=== PATIENT | female | born 1985 | race Caucasian/White ===

== ENCOUNTER → 2016-04-09 | Outpatient (REF) | payer OTHER ==
[~2016-04-09] MED LIST: IBUP800T OR; KLON0.5T PO; LABE100T2 OR; METO25TA74 PO; METO25TAB PO; PERC5TAB8 OR; PHEN15CA58 PO; PRENTAB8 PO; SERT-141 PO
[2016-04-09 09:45] LABS: THYROXINE (T4) 7.2 UG/DL (4.5-12.0)
== END ==
LOC: M SFHCLERA 08:59
PROVIDERS: ATTEND Family Medicine
DX: R94.6 Abnormal results of thyroid function studies (principal)

== ENCOUNTER → 2016-05-20 | Outpatient (REF) | payer OTHER | LOC: M SFHCLERA 08:38 | PROVIDERS: ATTEND Family Medicine | DX: E03.8 Other specified hypothyroidism (principal) ==

== ENCOUNTER → 2016-10-13 | Outpatient (REF) | payer OTHER ==
[~2016-10-13] MED LIST changes: +LEVO50TA5; +LOPR1TAB6 PO; +METO1TAB32 PO; -METO25TA74 PO; +METO50TA7; +PHEN15CA PO; -PHEN15CA58 PO; -SERT-141 PO; +SERT50TA PO; +ZOLO100T PO
== END ==
LOC: M SFHCLERA 11:46
PROVIDERS: ATTEND Family Medicine
DX: E89.0 Postprocedural hypothyroidism (principal)

== ENCOUNTER 2016-10-17 17:38 | Emergency (ER) | payer OTHER ==
[~2016-10-17] VITALS: Ht 154.9 cm; Wt 100.0 kg
[~2016-10-17 17:38] MED LIST changes: -LEVO50TA5; -LOPR1TAB6 PO; -METO50TA7; -ZOLO100T PO
[2016-10-17] MEDS ORDERED: LOPR1TAB6 PO (17:52)
[2016-10-17] MEDS ORDERED: ZOLO100T PO (17:52)
[2016-10-17] MEDS ORDERED: LEVO50TA5 (17:52)
[2016-10-17] MEDS ORDERED: METO50TA7 (17:52)
[2016-10-17 18:18] LABS: MEAN CORPUSCULAR HEMOGLOBIN 31.3 pg (27.0-33.0); MEAN CORPUSCULAR HGB CONC 35.2 g/dl (32.0-36.5); MEAN CORPUSCULAR VOLUME 88.9 fl (80.0-96.0); RED CELL DISTRIBUTION WIDTH 13.6 % (11.5-14.5); WHITE BLOOD COUNT 13.5 K/mm3 (4.0-10.0)
[2016-10-17 18:42] LABS: CONTROL LINE HCG INT CTR LINE PRESENT
[2016-10-17 18:50] LABS: METHADONE URINE NEGATIVE (NEGATIVE)
[2016-10-17 19:00] LABS: ALBUMIN 3.9 GM/DL (3.2-5.2); ALBUMIN/GLOBULIN RATIO 1.05 (1.00-1.93); ALKALINE PHOSPHATASE 99 U/L (45-117); ALT/SGPT 53 U/L (12-78); ANION GAP 10 MEQ/L (8-16); AST/SGOT 41 U/L (15-37); BILIRUBIN,DIRECT < 0.1 MG/DL (0.0-0.2); BILIRUBIN,TOTAL 0.3 MG/DL (0.2-1.0); BLOOD UREA NITROGEN 13 MG/DL (7-18); CALCIUM LEVEL 8.9 MG/DL (8.5-10.1); CARBON DIOXIDE LEVEL 23 MEQ/L (21-32); CHLORIDE LEVEL 102 MEQ/L (98-107); CREATININE FOR GFR 0.93 MG/DL (0.55-1.02); GLOMERULAR FILTRATION RATE > 60.0 (>60); GLUCOSE, FASTING 102 MG/DL (70-105); POTASSIUM SERUM 3.3 MEQ/L (3.5-5.1); SODIUM LEVEL 135 MEQ/L (136-145); TOTAL PROTEIN 7.6 GM/DL (6.4-8.2)
[2016-10-17] MEDS ORDERED: GLYCERIN ADULT SUPP PR ONE (21:15)
[2016-10-17 22:12] VITALS: BP 152/89
== END 2016-10-17 22:13 | disposition home or self-care (01) ==
LOC: M ED 17:38
DX: F41.9 Anxiety disorder, unspecified (principal); F43.0 Acute stress reaction; R45.851 Suicidal ideations; I10 Essential (primary) hypertension; F33.8 Other recurrent depressive disorders; F17.210 Nicotine dependence, cigarettes, uncomplicated; Z79.899 Other long term (current) drug therapy
CPT/HCPCS: 36415; 80048; 80076; 80307; 84443; 84703; 85027; 99284; G0480

== ENCOUNTER → 2017-03-11 | Outpatient (REF) | payer OTHER ==
[~2017-03-11] MED LIST changes: +LEVO50TA5; +LOPR1TAB6 PO; +METO50TA7; +ZOLO100T PO
== END ==
LOC: M SFHCLERA 07:43
PROVIDERS: ATTEND Physician Assistant
DX: J02.9 Acute pharyngitis, unspecified (principal)

== ENCOUNTER → 2021-08-22 | Outpatient (REF) | payer OTHER ==
[~2021-08-22] MED LIST changes: +METO1TAB63 PO; -METO25TAB PO; -PHEN15CA PO; +PHEN15CA6 PO; +SERT-141 PO; -SERT50TA PO
== END ==
LOC: M SFHCDERM 13:58
PROVIDERS: ATTEND Physician Assistant
DX: L98.9 Disorder of the skin and subcutaneous tissue, unspecified (principal)

== ENCOUNTER → 2023-05-19 | Outpatient (REF) | payer OTHER ==
[~2023-05-19] MED LIST changes: -KLON0.5T PO; +KLON0.5T8 PO
[2023-05-19 14:14] LABS: RSV AMPLIFICATION NEGATIVE (NEGATIVE)
== END ==
LOC: M LAB REF 12:57
PROVIDERS: ATTEND Physician Assistant
DX: Z20.828 Contact with and (suspected) exposure to other viral communicable diseases (principal)

== ENCOUNTER → 2024-04-12 | Outpatient (REF) | payer OTHER | LOC: M LAB REF 12:31 | PROVIDERS: ATTEND Pediatrics | DX: R05.9 Cough, unspecified (principal) ==